=== PATIENT | male | born 1945 | race Caucasian/White ===

== ENCOUNTER → 2024-06-27 | Outpatient (CLI) | payer MEDICARE, MEDICAID, SELFPAY ==
--- NOTE | 2024-06-27 10:09 | EKG_ITS ---
[facility] Test Date: 2024-06-27 Pat Name: ANA HART Department: Room: - Gender: Male Semiconductor Engineer: JEETCarolann : [id number] Requested By: Franklyn Patel Order Number: [id number] Reading MD: Franklyn Patel Measurements Intervals [place] Rate: 83 P: CA: QRS: -45 QRSD: 128 T: 5 QT: 395 QTc: 466 Interpretive Statements ATRIAL FIBRILLATION MARKED LEFT AXIS DEVIATION [QRS AXIS < -30] MODERATE INTRAVENTRICULAR CONDUCTION DELAY [110+ ms QRS DURATION] Compared to ECG 11/16/2021 21:43:55 Left-axis deviation now present /store/S0/[id number]/ecg/[id number].pdf
== END | disposition home or self-care (01) ==
PROVIDERS: PCP Nurse Practitioner Family; Referring Provider Student in an Organized Health Care Education/Training Program; Visit Provider Student in an Organized Health Care Education/Training Program
DX: Z01.818 Encounter for other preprocedural examination (principal); H25.811 Combined forms of age-related cataract, right eye
CPT/HCPCS: 93005